=== PATIENT | female | born 1975 | race Two or more races ===

== ENCOUNTER → 2021-07-25 08:22 | Outpatient (BNVA) | payer OTHER, SELFPAY | PROVIDERS: Visit Provider Internal Medicine | DX: Z77.21 Contact with and (suspected) exposure to potentially hazardous body fluids (principal); S60.411A Abrasion of left index finger, initial encounter; Y93.E8 Activity, other personal hygiene | CPT/HCPCS: 36415; 84450; 84460; 86706; 86803; 87389; 99203 ==

== ENCOUNTER → 2021-09-09 07:47 | Outpatient (BNVA) | payer OTHER, SELFPAY | DX: Z77.21 Contact with and (suspected) exposure to potentially hazardous body fluids (principal) | CPT/HCPCS: 36415; 84450; 84460; 87389; 99211 ==

== ENCOUNTER → 2021-10-28 10:31 | Outpatient (BNVA) | payer OTHER, SELFPAY | DX: Z77.21 Contact with and (suspected) exposure to potentially hazardous body fluids (principal) | CPT/HCPCS: 36415; 84450; 84460; 86706; 86803; 87389; 99211 ==

== ENCOUNTER → 2022-02-10 07:56 | Outpatient (BNVA) | payer OTHER, SELFPAY | DX: Z77.21 Contact with and (suspected) exposure to potentially hazardous body fluids (principal) | CPT/HCPCS: 36415; 84450; 84460; 86803; 87389; 99211 ==